=== PATIENT | male | born 1955 | race Caucasian/White ===

== ENCOUNTER 2022-05-10 11:44 | Observation (INO) | payer MEDICARE, OTHER ==
[2022-05-04 15:25] LABS: BASOPHILS % (AUTO) 0.5 % (0-1); EOSINOPHILS # (AUTO) 0.2 X10'3 (0-0.9); EOSINOPHILS % (AUTO) 2.9 % (0-6); LYMPHOCYTES # (AUTO) 1.4 X10'3 (1.1-4.8); LYMPHOCYTES % (AUTO) 25.6 % (21-51); MEAN CORPUSCULAR HEMOGLOBIN 30.4 PG (27.0-31.0); MEAN CORPUSCULAR HGB CONC 33.6 g/dL (33.0-36.5); MEAN CORPUSCULAR VOLUME 90.4 FL (78-98); MEAN PLATELET VOLUME 8.6 FL (7.4-10.4); MONOCYTES # (AUTO) 0.5 X10'3 (0-0.9); MONOCYTES % (AUTO) 9.5 % (2-12); NEUTROPHILS # (AUTO) 3.4 X10'3 (1.8-7.7); NEUTROPHILS % (AUTO) 61.5 % (42-75); PRE OP HEMATOCRIT 41.2 % (42.0-52.0); PRE OP HEMOGLOBIN 13.9 g/dL (14.0-17.9); PRE OP PLATELET COUNT 232 X10'3 (140-440); RED BLOOD COUNT 4.56 X10'6 (4.70-6.10); RED CELL DISTRIBUTION WIDTH 14.1 % (11.5-14.5)
[2022-05-04 15:37] LABS: ALBUMIN 3.6 G/DL (3.4-5.0); ALKALINE PHOSPHATASE 87 IU/L (46-116); BLOOD UREA NITROGEN 18 MG/DL (7-18); BUN/CREATININE RATIO 13.3 (5.4-32.0); CALCIUM 8.8 MG/DL (8.5-10.1); CHLORIDE 106 MMOL/L (99-107); CREATININE 1.35 MG/DL (0.60-1.10); PRE OP ALT 24 U/L (30-65); PRE OP ANION GAP 10 (8-16); PRE OP AST 17 U/L (10-37); PRE OP BILIRUB, TOTAL 0.2 MG/DL (0.0-1.0); PRE OP GLUCOSE 98 MG/DL (70-104); PRE OP POTASSIUM 4.2 MMOL/L (3.4-5.1); PRE OP SODIUM 139 MMOL/L (135-145); TOTAL CARBON DIOXIDE 22.9 MMOL/L (24-32); TOTAL PROTEIN 7.1 G/DL (6.4-8.2); eGFR 53 ML/MIN
[~2022-05-10] VITALS: Ht 190.5 cm; Wt 127.7 kg
[2022-05-10] VITALS (30 sets, daily range): BP systolic 114–165; BP diastolic 63–85
[~2022-05-10 11:44] MED LIST: CHOL10008 PO; CYAN500T71 PO; LISI5TAB22 PO; LYR75C PO; MALTODEXTRIN/FRUCTOSE 0.68 KCAL/ML LIQUID 296ML BOTTLE PO ONE; ZOLP5TAB8 PO; ceFOXitin 2GM-NS 100mL ADDvant 100 ML IV ONE; famotidine 20mg tablet PO ONE; metroNIDAZOLE-Flagyl 500mg/NS 100ML IVPB IV ONE; ringers solution, lacted 1,000 ML IV SCH
[2022-05-10] MEDS ORDERED: ringers solution, lacted 1,000 ML IV SCH (13:15)
[2022-05-10] MEDS ORDERED: fentaNYL/PF 50MCG/1 ML 2ML syringe IV PRN ×2 (13:15)
[2022-05-10] MEDS ORDERED: labetalol 20mg/4ml (5mg/ml) syringe IV PRN (13:15)
[2022-05-10] MEDS ORDERED: ondansetron/PF 4mg/2ml inj IV PRN ×2 (13:15→16:40)
[2022-05-10] MEDS ORDERED: hydrALAZINE 20mg/ml inj. IV PRN (13:15)
[2022-05-10] MEDS ORDERED: morphine 4 MG/ML inj SYRINge IV PRN (13:15)
[2022-05-10] MEDS ORDERED: morphine 2 MG/ML inj. syringe IV PRN (13:15)
[2022-05-10] MEDS ORDERED: mineral oil 10ml sterile, topical TP ONE (13:25)
[2022-05-10] MEDS ORDERED: tobramycin 40mg/ml inj ONE (13:25)
[2022-05-10] MEDS ORDERED: BUPIVAcaine/PF 2.5 mg/ml (0.25%) 30ml vial ONE (13:25)
[2022-05-10] MEDS ORDERED: LIDOCAINE 1%/EPI 1:100,000 inj. 10 ML multi-dose vial ONE (13:25)
[2022-05-10] MEDS ORDERED: sevoflurane 250ml liquid IH ONE (13:38)
[2022-05-10] MEDS ORDERED: rocuronium 10mg/ml inj IV ONE ×2 (13:38→13:57)
[2022-05-10] MEDS ORDERED: dexamethasone sod phosphate 10mg/ml inj ONE (13:38)
[2022-05-10] MEDS ORDERED: propofol inj 20 ML IV ONE (13:56)
[2022-05-10] MEDS ORDERED: LIDOcaine 2% (20mg/ml) 5ml vial ONE (13:56)
[2022-05-10] MEDS ORDERED: ondansetron/PF 4mg/2ml inj ONE (13:57)
[2022-05-10] MEDS ORDERED: fentaNYL/PF 50MCG/1 ML 2ML syringe ONE (13:58)
[2022-05-10] MEDS ORDERED: midazolam 1 mg/ML 2ml injection ONE (13:59)
[2022-05-10] MEDS ORDERED: sugammadex 200mg/2ml injection IV ONE (14:37)
[2022-05-10] MEDS ORDERED: glycopyrrolate 0.2mg/ml inj ONE (15:47)
--- NOTE | 2022-05-10 16:07 | NUR ---
Received from OR via , accompanied by Anesthesiologist JUN and OR NURSE report given by Anesthesiolgist. PT IS DROWSY YET RESPONDS TO VERBAL STIMULI. DENIES PAIN OR DISCOMFORT. VSS. SCD'S IN PLACE WITH PUMP. Addendum: 05/10/22 at 1621 by Luna Crockett RN Amended: Links added.
[2022-05-10] MEDS ORDERED: HYDROcodone/acetaminophen 5mg/325mg tablet PO PRN (16:40)
[2022-05-10] MEDS: normal saline 1000ml 1,000 ML IV SCH (19:06)
--- NOTE | 2022-05-10 19:27 | NUR ---
Report called to receiving nurse. Transferred via BED WITH 3 Belongings BAGS . Special Issues communicated to receiving nurse. FLOOR NURSE CATERINA CONCERNED WITH SBP OF 165/81; DATA WAREHOUSE DEVELOPER WAITED A FEW MINUTES NEXT SBP WAS 155. OTHERWISE VSS. ROOM AIR AND DENIES ANY PAIN OR DISCOMFORT. Addendum: 05/10/22 at 1940 by Luna Crockett RN Amended: Links added.
--- NOTE | 2022-05-10 19:30 | NUR ---
Patient arrived to his room via hospital bed from recovery room. Awake, A&O and in no distress at this time. Post op VS initiated.
[2022-05-10] MEDS ORDERED: docusate sod 100mg capsule PO SCH (20:00)
--- NOTE | 2022-05-10 20:34 | NUR ---
Mary TOMLINSON MD to get one time orders for HS meds. Vit d3 25 MCG,vitamin B12 500 MCg, lisinopril 10MG, ambien 5 mg, lyrica 75mg. Will enter order in.
[2022-05-10] MEDS ORDERED: lisinopril 10 MG tablet PO ONE (21:00)
[2022-05-10] MEDS ORDERED: zolpidem 5mg tablet PO ONE (21:00)
[2022-05-10] MEDS ORDERED: cyanocobalamin 500mcg tablet PO ONE (21:00)
[2022-05-10] MEDS ORDERED: pregabalin 75mg capsule PO ONE (21:00)
[2022-05-10] MEDS ORDERED: HYDROcodone/acetaminophen 10/325mg tab PO PRN (22:40)
[2022-05-10] MEDS: metroNIDAZOLE-Flagyl 500mg/NS 100 ML IV SCH (23:49)
[2022-05-11] VITALS: BP 154/80
[2022-05-11] MEDS: ceFOXitin inj 1,000 MG in normal saline 100ml IV soln 100 ML IV SCH ×2 (01:44→08:00)
[2022-05-11] MEDS: normal saline 1000ml 1,000 ML IV SCH (06:00)
[2022-05-11 06:17] LABS: BASOPHILS % (AUTO) 0 % (0-1); EOSINOPHILS % (AUTO) 0 % (0-6); HEMOGLOBIN 12.4 g/dl (14.0-17.9); LYMPHOCYTES % (AUTO) 13.1 % (21-51); MEAN CORPUSCULAR HGB CONC 33.5 g/dL (33.0-36.5); MEAN CORPUSCULAR VOLUME 89.8 FL (78-98); MEAN PLATELET VOLUME 8.9 FL (7.4-10.4); MONOCYTES # (AUTO) 0.7 X10'3 (0-0.9); MONOCYTES % (AUTO) 8.7 % (2-12); NEUTROPHILS % (AUTO) 78.2 % (42-75); PLATELET COUNT 202 X10'3 (140-440); RED BLOOD COUNT 4.12 X10'6 (4.70-6.10); RED CELL DISTRIBUTION WIDTH 13.8 % (11.5-14.5); WHITE BLOOD COUNT 7.6 X10'3 (4.5-11.0)
[2022-05-11 06:18] LABS: ALBUMIN 2.8 G/DL (3.4-5.0); ANION GAP 8 (8-16); BLOOD UREA NITROGEN 14 MG/DL (7-18); BUN/CREATININE RATIO 11.7 (5.4-32.0); CALCIUM 8.6 MG/DL (8.5-10.1); CHLORIDE 102 MMOL/L (99-107); GLUCOSE 118 MG/DL (70-104); POTASSIUM 4.6 MMOL/L (3.5-5.1); SODIUM 135 MMOL/L (135-145); TOTAL CARBON DIOXIDE 25.3 MMOL/L (24-32); eGFR 60 ML/MIN
--- NOTE | 2022-05-11 06:40 | NUR ---
Problems reprioritized. Patient report given, questions answered & plan of care reviewed with Norma STARR.
[2022-05-11 07:00] VITALS: BP 116/54
[2022-05-11 08:00] VITALS: BP 120/55
[2022-05-11] MEDS ORDERED: polyethylene glycol 3350 17gm powd pack PO SCH (08:00)
[2022-05-11] MEDS: docusate sod 100mg capsule PO SCH ×2 (08:00→09:05)
[2022-05-11] MEDS: metroNIDAZOLE-Flagyl 500mg/NS 100 ML IV SCH (08:44)
--- NOTE | 2022-05-11 10:43 | NUR ---
Message: [id number] Babs Fallon: patient has been cleared by Dr. Umana. His son is here, he's wanting to DC leslie. thanks! ruben [email or web address] Transaction number: [id number]
--- NOTE | 2022-05-11 12:40 | NUR ---
Patient stable and appropriate for discharge home. iv removed, all belongings taken from room. No new RX. All discharge instructions and education given and reviewed with patient, all questions answered. patients f/u appt already scheduled with luc
--- NOTE | 2022-05-11 15:14 | NUR ---
Student documentation: I have reviewed and agree with all interventions, assessments performed and documented by Aisha NGUYEN [email or web address].
[2022-05-11] MEDS ORDERED: cyanocobalamin 500mcg tablet PO SCH (21:00)
[2022-05-11] MEDS ORDERED: pregabalin 75mg capsule PO SCH (21:00)
[2022-05-11] MEDS ORDERED: psyllium seed 3.4 gm packet PO SCH (21:00)
[2022-05-11] MEDS ORDERED: lisinopril 5mg tablet PO SCH (21:00)
== END 2022-05-11 12:40 | disposition home or self-care (01) ==
LOC: INTOOBSV 11:44 → UNDOADMOB 11:44 → PAS IN 11:44 → SUR 3N 16:41 → PAS IN 19:30
PROVIDERS: ADMIT Colon & Rectal Surgery; ATTEND Colon & Rectal Surgery
DX: C20 Malignant neoplasm of rectum (principal); Z87.891 Personal history of nicotine dependence; G62.9 Polyneuropathy, unspecified; I10 Essential (primary) hypertension; E66.9 Obesity, unspecified; Z79.899 Other long term (current) drug therapy; Z86.718 Personal history of other venous thrombosis and embolism; Z87.442 Personal history of urinary calculi; Z98.84 Bariatric surgery status
CPT/HCPCS: 36415; 45305; 80048; 80053; 82948; 85025; 86885; 86900; 86901; 87081; 96365; 96366; 96367; C1758; G0378; J0694; J1100; J2250; J2405; J2704; J3010; J3260; J3490; J7030; J7120; 88309; A4615; A4618; A6449; A7000